=== PATIENT | female | born 1955 | race Caucasian/White ===

== ENCOUNTER 2022-06-09 10:43 | Day surgery (SDC) | payer MEDICARE, SELFPAY ==
[2022-06-09] VITALS (15 sets, daily range): BP systolic 102–159; BP diastolic 49–91; PULSE 61–84; RESP 12–16; TEMP 36.8–37.1; O2SAT 92–100; BMI 27.2
--- NOTE | 2022-06-09 11:07 | SUR.PREOP ---
Home COVID negative.
[2022-06-09] MEDS: LACTATED RINGERS 1000 ML 1,000 ML 100 ML IV ×2 (11:30→16:20)
[2022-06-09] MEDS: SODIUM CHLORIDE 0.9 % (FLUSH) 10 ML SYRINGE IVF (11:47)
--- NOTE | 2022-06-09 15:25 | SUR.PREOP ---
TIME?OUT:?1525 PT/RN/MDA?VERIFICATION?OF?SURGICAL?SITE,?PROCEDURE,?AND?CONSENT OBTAINED?PRIOR?TO?INVASIVE?PROCEDURE.
[2022-06-09] MEDS: MIDAZOLAM HCL 1 MG/ML inj IVP (15:26)
[2022-06-09] MEDS: fentaNYL 100 MCG/2 ML inj IVP (15:26)
[2022-06-09] MEDS: CEFAZOLIN 2 GM in 0.9 % SODIUM CHLORIDE Mini-bag 100 ML IVPB (15:40)
--- NOTE | 2022-06-09 15:45 | P.NB_ITS ---
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 Images saved: Yes Medications given in 5ml increments after negative aspiration: Ropivicaine %: 0.5 mL: 20 Needle gauge: 22 Decadron (mg): 10 Precedex (mcg): 25 Patient tolerated procedure well: Yes Block Charges Block Charge (with Pro Fee): Brachial Plexus Use of Ultrasound Machine for Block: Yes- US Guidance/pain block
--- NOTE | 2022-06-09 17:14 | P.ORPRC_ITS ---
Procedure Note Date of procedure: 06/09/22 Procedure: PREOPERATIVE DIAGNOSES: 1. Right shoulder rotator cuff tear. 2. Right shoulder labral tearing. 3. Right shoulder long head of biceps high-grade partial-thickness tearing 4. Right shoulder chondromalacia of glenoid, grade 3 with loose chondral flaps 5. Right shoulder subacromial impingement syndrome. POSTOPERATIVE DIAGNOSES: 1. Right shoulder rotator cuff tear. 2. Right shoulder labral tearing. 3. Right shoulder long head of biceps high-grade partial-thickness tearing 4. Right shoulder chondromalacia of glenoid, grade 3 with loose chondral flaps 5. Right shoulder subacromial impingement syndrome. NAME OF OPERATION: 1. Right shoulder arthroscopic rotator cuff repair (upper border subscapularis and full-thickness supraspinatus crescent type tear) 2. Right shoulder arthroscopic extensive glenohumeral debridement 3. Right shoulder arthroscopic long of the biceps tenotomy 4. Right shoulder arthroscopic bursectomy, subacromial decompression/partial acromioplasty. SURGEON: Luis E Olmedo MD DOCUMENT RESTORER: Mike DAVE. Of note, a skilled pet care assistant was critical for this case to aide in patient positioning, suture manipulation, arm positioning, instrument positioning, and closure. ANESTHESIA: General plus preoperative supraclavicular block. EBL: 25 mL IMPLANTS: Arthrex 2.6 mm FiberTak RC (x2); 4.75 mm BioComposite SwiveLock suture anchor (x2); 5.5 mm BioComposite SwiveLock suture anchor (x1) COMPLICATIONS: None evident INDICATIONS: The patient is a pleasant, 67-year-old female who has experienced right shoulder pain that has been increasing in recent time. Physical exam and imaging were consistent with a rotator cuff tear. Given their findings, as well as the weakness and pain, and inadequate response to nonoperative management, recommendation was made for surgery. FINDINGS: Exam under anesthesia revealed stable shoulder with excellent range of motion. The diagnostic arthroscopy revealed grade 3 chondromalacia glenoid centrally and superiorly with loose chondral flaps. The Subscapularis tendon was torn from its upper border and moderately retracted. The long head of the biceps tendon was torn high-grade partial-thickness mass. The superior rotator cuff tendon was found to be torn full-thickness and a crescent type tear the entire breadth at the supraspinatus. The labrum was degeneratively frayed in the anterior and superior aspects. No loose bodies were identified within the pouch or subscapularis recess. PROCEDURE: Following a thorough discussion of risks, benefits, and alternatives, consent was obtained and the right shoulder was marked. The patient was brought to the operating room and placed supine on the operating table. Induction of anesthesia was completed after preoperative supraclavicular block was administered in preop holding. Appropriate time out was performed identifying proper patient, site, and procedure. 2 g IV Ancef was administered within 1 hour of incision preoperatively. The right upper extremity was prepped and draped in the appropriate sterile fashion using ChloraPrep prep. This was after the patient was positioned in the beach chair with their head in neutral alignment and all bony prominences well padded. The shoulder was insufflated with 20mL of normal saline via an 18g spinal needle from a posterior approach. An 11 blade skin incision allowed a blunt trochar to be inserted and diagnostic arthroscopy to be performed with the findings as noted above. An anterior portal was established with an outside in technique. This allowed the probe to be inserted and confirm the diagnostic arthroscopic findings. The shaver was then inserted and allowed debridement of the anterior and superior labrum in addition to the loose chondral flaps of the glenoid, biceps stump, the lesser tuberosity bone of the humerus as well. Additionally, the long of the biceps was released from the bicipital tuberosity for arthroscopic tenotomy. The stump was debrided with a shaver. Following this, the upper border subscapularis was repaired after debriding the lesser tuberosity with the shaver and [place] cautery. Subscapularis was captured in horizontal mattress fashion with a fiber tape suture. The tails were brought to a single anchor in the lesser tuberosity with excellent reapproximation of the subscap tendon and good excursion/tension. Thereafter, the subacromial space was entered. Here, a complete bursectomy and partial acromioplasty/subacromial decompression was performed with a combination of radiofrequency ablator, the shaver, and a 5.5 mm bur. Further inspection of the supraspinatus and infraspinatus rotator cuff was performed. This identified the tear as noted above. The margins of the tear were debrided, and the greater tuberosity was debrided with a combination of the [place] cautery, shaver, and bur on reverse setting. After gentle decortication, a speed bridge configuration with a medial rufus was engaged. 2 medial anchors were placed and the sutures were passed with a fiber link. The knotless suture mechanism was then passed, and engaged but not pulled fully tight until after the speed bridge was completed. Beyond that, a tape tail from each of the medial row anchors was then brought to a lateral row anchor. Excellent reapproximation of the tissue to the greater tuberosity was achieved with broad footprint compression. Finally, the non his mechanism was cinched down tight on both of the tails with excellent medial footprint compression. Prior to anchor hi low truck driver removal, the eyelet sutures were tugged on for each anchor and found that the anchor had excellent stability with in the bone. The shoulder was placed through range of motion and found to be stable. The rotator cuff was re-probed and found to be stable. Instruments were removed. Excess fluid was drained, closure performed with 4-0 Monocryl and Steri-Strips. Dressings were applied. Sling was applied. The patient was awoken from anesthesia and transferred to the PACU in stable condition. A skilled pet care assistant was critical for this case to aid in patient positioning, limb positioning, skill to manipulate arthroscopic instruments and camera, suture management, patient safety, and closure. PLAN: 1. Elbow, forearm, wrist and digit range of motion as tolerated. 2. Encouraged ice. 3. Percocet for pain as needed. 4. Sling at all times except for ROM and showering. 5. Follow up with PA visit in 1-2 weeks for wound check. Initiate physical therapy following that visit for passive range of motion. Initiate active assisted range of motion at 3weeks. May do pendulums now.
--- NOTE | 2022-06-09 17:17 | W.ANESCHARGE ---
Anesthesia Charges Start Date/Time Anesthesia Start Date: 06/09/22 Anesthesia Start Time: 15:32 Stop Date/Time Anesthesia Stop Date: 06/09/22 Anesthesia Stop Time: 17:15 Summary Emergency: No
--- NOTE | 2022-06-09 22:45 | PM.IMPN1 ---
Exam Const: Vital Signs, click to edit/add: Vital Signs - 24 hr 06/09/22 11:35 06/09/22 15:21 06/09/22 15:25 Temperature 98.6 F Pulse Rate 61 63 62 Pulse Rate [Pulse Oximeter] Respiratory Rate 16 16 16 Blood Pressure 139/71 137/67 159/91 H Blood Pressure [Le ft Arm] Pulse Oximetry 98 100 100 Oxygen Delivery Me thod Room Air Nasal Cannula Nasal Cannula Oxygen Flow Rate 3 3 06/09/22 17:11 06/09/22 17:15 06/09/22 17:20 Temperature 98.7 F Pulse Rate 83 84 78 Pulse Rate [Pulse Oximeter] Respiratory Rate 16 12 12 Blood Pressure 125/57 L 113/54 L 111/52 L Blood Pressure [Le ft Arm] Pulse Oximetry 93 93 96 Oxygen Delivery Me thod Room Air Oxygen Flow Rate 06/09/22 17:25 06/09/22 17:30 06/09/22 17:35 Temperature Pulse Rate 78 76 72 Pulse Rate [Pulse Oximeter] Respiratory Rate 16 16 16 Blood Pressure 112/59 L 110/56 L 106/54 L Blood Pressure [Le ft Arm] Pulse Oximetry 92 93 93 Oxygen Delivery Me thod Oxygen Flow Rate 06/09/22 17:41 06/09/22 17:55 06/09/22 18:00 Temperature 98.3 F Pulse Rate 73 78 Pulse Rate [Pulse Oximeter] 67 Respiratory Rate 16 16 16 Blood Pressure 104/50 L Blood Pressure [Le ft Arm] 116/58 L 112/55 L Pulse Oximetry 94 95 Oxygen Delivery Me thod Room Air Room Air Oxygen Flow Rate 06/09/22 18:15 06/09/22 18:30 06/09/22 18:45 Temperature Pulse Rate Pulse Rate [Pulse Oximeter] 71 78 70 Respiratory Rate 16 16 16 Blood Pressure Blood Pressure [Le ft Arm] 102/52 L 106/49 L 103/51 L Pulse Oximetry 94 94 97 Oxygen Delivery Me thod Room Air Room Air Room Air Oxygen Flow Rate
== END 2022-06-09 20:35 | disposition home or self-care (01) ==
LOC: OR 12:30 → MEDSURG 19:57
PROVIDERS: PCP Family Medicine; Visit Provider Orthopaedic Surgery Sports Medicine
PROC: (CPT 29805; principal; 2022-06-09 12:15)
DX: M75.121 Complete rotator cuff tear or rupture of right shoulder, not specified as traumatic (principal); M75.41 Impingement syndrome of right shoulder; M94.211 Chondromalacia, right shoulder; S46.111A Strain of muscle, fascia and tendon of long head of biceps, right arm, initial encounter; S43.491A Other sprain of right shoulder joint, initial encounter
CPT/HCPCS: 29827; 29828; 29826; 29823; 01630; 64415; 76942; C1713; J0330; J0690; J1100; J2250; J2405; J2704; J2795; J3010; J7120